=== PATIENT | female | born 1960 | race African-American/Black ===

== ENCOUNTER 2022-06-19 01:38 | Emergency (ER) | payer MEDICARE, SELFPAY ==
[2022-06-19 01:42] VITALS: BP 150/94; PULSE 67; RESP 18; TEMP 36.3; O2SAT 100
--- NOTE | 2022-06-19 03:11 | ED.GENADULT ---
HPI - General Adult General Chief complaint: Unspecified <NOLVIA Márquez Last Filed: 06/19/22 03:28> Stated complaint: bloody nose <NOLVIA Márquez Last Filed: 06/19/22 03:28> Time Seen by Provider: 06/19/22 02:30 <NOLVIA Márquez Last Filed: 06/19/22 03:28> Source: patient <NOLVIA Márquez Last Filed: 06/19/22 03:28> Mode of arrival: EMS <NOLVIA Márquez Last Filed: 06/19/22 03:28> Limitations: no limitations <NOLVIA Márquez Last Filed: 06/19/22 03:28> History of Present Illness HPI narrative: Patient is a 62-year-old female who presents to the ED via EMS with multiple complaints. Patient reports she works at [employer] in the [employer] and has recently been exposed to mold at the workplace. Tonight she was exposed again and reported feeling lightheaded after smelling the mold. She then had an episode of nausea and vomiting. She then blew her nose and noticed some blood, so EMS was called. Upon my evaluation patient does not have any acute complaints. No further epistaxis. She tells me that she feels like she had a panic attack tonight and became scared she was going to . Patient has since resigned from [employer]. <Anu Franco PA-C - Last Filed: 06/19/22 03:28> Review of Systems Review of Systems: CONSTITUTIONAL: Denies fever, chills, or sweats. EYES: Denies visual changes. ENT: Reports epistaxis. Denies rhinorrhea, congestion, sore throat. CARDIOVASCULAR: Denies chest pain. RESPIRATORY: Denies dyspnea. GASTROINTESTINAL: Reports nausea, vomiting. Denies abdominal pain, nausea. NEUROLOGIC: Reports lightheadedness. Denies headache, numbness, or weakness. <NOLVIA Márquez Last Filed: 06/19/22 03:28> All systems reviewed & are unremarkable except as noted in HPI and below <Anu Franco PA-C - Last Filed: 06/19/22 03:28> PMFSH Past Medical History Medical History: Medical History (Updated 06/19/22 @ 03:25 by Anu Franco PA-C) Diabetes mellitus Hypertension <Anu Franco PA-C - Last Filed: 06/19/22 03:28> Surgical History Surgical History: Surgical History (Updated 06/19/22 @ 03:24 by Anu Franco PA-C) No pertinent past surgical history <Anu Franco PA-C - Last Filed: 06/19/22 03:28> Social History Social History: Social History (Updated 06/19/22 @ 03:25 by Anu Franco PA-C) Smoking status: Never smoker <Anu Franco PA-C - Last Filed: 06/19/22 03:28> Exam Narrative: GENERAL: Well appearing, well-nourished, non-toxic, in no acute distress. HEAD: Normocephalic, atraumatic. EYES: PERRL/EOMI, conjunctivae clear bilaterally. NOSE: Normal. No drainage or bleeding. No dried blood noted. THROAT: Pharynx clear, no exudate. MMs moist. NECK: Supple. No adenopathy, no masses. RESPIRATORY: Airway patent, respirations nonlabored. Clear to auscultation bilaterally, no rales, rhonchi, wheezing. CARDIOVASCULAR: Regular rate and rhythm without murmurs, rubs, or gallops. Radial pulses 2+ and equal bilaterally. MUSCULOSKELETAL: Moves all extremities. Strength/ROM intact without gross deformities. SKIN: Warm, dry, normal color. No rashes. NEURO: A&O X3. Speech clear. Cranial nerves II-XII grossly intact. Steady gait. No ataxic movements. PSYCHIATRIC: Appropriate mood and affect. Normal interaction. <Anu Franco PA-C - Last Filed: 06/19/22 03:28> Course AIDS COUNSELOR/PA Physician Supervision I discussed this patient with RAJANI Franco. I agree with the assessment and plan as documented. <Ananda Blancas MD - Last Filed: 06/19/22 21:13> Vital Signs Vital signs: Vital Signs Temperature 97.3 F L 06/19/22 01:42 Pulse Rate 67 06/19/22 01:42 Respiratory Rate 18 06/19/22 01:42 Blood Pressure 150/94 H 06/19/22 01:42 Pulse Oximetry 100 06/19/22 01:42 Oxygen Delivery Room Air
[2022-06-19 03:43] VITALS: PULSE 89; O2SAT 100
== END 2022-06-19 03:47 | disposition home or self-care (01) ==
PROVIDERS: Emergency Provider Preventive Medicine Aerospace Medicine; PCP Family Medicine Sports Medicine
DX: F41.9 Anxiety disorder, unspecified (principal); R04.0 Epistaxis; E11.9 Type 2 diabetes mellitus without complications; I10 Essential (primary) hypertension
CPT/HCPCS: 99283